=== PATIENT | male | born 1970 | race Caucasian/White ===

== ENCOUNTER → 2018-01-14 | Outpatient (CLI) | payer OTHER | LOC: LAB 16:16 → LAB SHORT 16:16 | DX: I10 Essential (primary) hypertension (principal) | CPT/HCPCS: 83036 ==

== ENCOUNTER 2020-03-08 04:10 | Inpatient (IN) | payer OTHER ==
[~2020-03-08] VITALS: Ht 177.8 cm; Wt 130.4 kg
[2020-03-08] MEDS ORDERED: Glimepiride2 MG PO (05:37)
[2020-03-08] MEDS ORDERED: METFORMIN HCL500 M3 PO (05:38)
[2020-03-08] MEDS ORDERED: LISINOPRIL-HCT1 EACH PO (05:38)
[2020-03-08] MEDS ORDERED: ROSUVASTATIN CA40 MG PO (05:38)
[2020-03-08 05:42] LABS: BASOPHILS ABSOLUTE AUTO 0.04 K/mm3 (0.00-0.23); BASOPHILS PERCENT AUTO 1 % (0-2); EOSINOPHILS ABSOLUTE AUTO 0.15 K/mm3 (0.00-0.68); EOSINOPHILS PERCENT AUTO 3 % (0-6); Hematocrit 44.5 % (37.0-53.0); Hemoglobin 15.1 g/dL (13.5-17.5); IMMATURE GRAN ABSOLUTE AUTO 0.01 K/mm3 (0.00-0.10); IMMATURE GRAN PERCENT AUTO 0 % (0-1); LYMPHOCYTES ABSOLUTE AUTO 1.71 K/mm3 (0.84-5.20); LYMPHOCYTES PERCENT AUTO 31 % (21-46); MONOCYTES ABSOLUTE AUTO 0.34 K/mm3 (0.16-1.47); MONOCYTES PERCENT AUTO 6 % (4-13); Mean Corpuscular HGB 28.5 pg (26.0-34.0); Mean Corpuscular HGB Conc 33.9 g/dL (31.5-36.5); Mean Corpuscular Volume 84 fL (80-100); Mean Platelet Volume 10.2 fL (9.1-12.4); NEUTROPHILS ABSOLUTE AUTO 3.24 K/mm3 (1.96-9.15); NEUTROPHILS PERCENT AUTO 59 % (41-73); Platelet Count 137 K/mm3 (150-400); RDW Coefficient Variation 12.6 % (11.7-14.2); RDW Standard Deviation 38.1 fL (35.1-46.3); White Blood Cell Count 5.49 K/mm3 (4.00-11.30)
[2020-03-08 05:59] LABS: Troponin I 0.294 ng/mL (0.000-0.040)
[2020-03-08 06:00] LABS: Alanine Aminotransfer (ALT/SGP 63 U/L (12-78); Albumin, Blood 3.9 g/dL (3.4-5.0); Albumin/Globulin Ratio 1.2 (0.8-1.8); Alk Phos 73 U/L (50-136); Anion Gap 5 mmol/L (6-16); Aspartate Aminotrans (AST/SGOT 47 U/L (12-37); Bilirubin, Total 0.8 mg/dL (0.1-1.0); Blood Urea Nitrogen 16 mg/dL (8-24); Bun/Creatinine Ratio 18.2 (12.0-20.0); CO2, Blood 29 mmol/L (21-32); Calcium, Blood 8.6 mg/dL (8.5-10.1); Chloride, Blood 106 mmol/L (98-108); Creatinine, Blood 0.88 mg/dL (0.60-1.20); Globulin, Blood 3.3 g/dL (2.2-4.0); Glomerular Filtration Rate >60 (60-); Glucose, Blood 214 mg/dL (70-99); Potassium, Blood 3.6 mmol/L (3.5-5.5); Sodium, Blood 140 mmol/L (136-145); Total Protein, Blood 7.2 g/dL (6.4-8.2)
[2020-03-08 07:56] LABS: International Normalized Ratio 1.03
[2020-03-08] MEDS ORDERED: FENO48 PO (08:26)
--- NOTE | 2020-03-08 11:34 | NUR ---
HEPARIN DC'D AT THIS TIME PER DR. STONER.
--- NOTE | 2020-03-08 12:18 | NUR ---
Echocardiogram completed.
--- NOTE | 2020-03-08 14:05 | NUR ---
RETURNED FROM SWEATBAND SEPARATOR AT THIS TIME, TR BAND TO RIGHT RADIAL. RADIAL PULSE PALPABLE, CAP REFILL <3, MOVES ALL FINGERS WITHOUT DIFFICULTY OR PAIN.
--- NOTE | 2020-03-08 17:47 | NUR ---
4ML TOTAL REMOVED FROM TR BAND AT THIS TIME, NO BLEEDING, RADIAL PULSE PALPABLE, DENIES PAIN OR NUMBESS TO FINGERS.
--- NOTE | 2020-03-08 18:37 | NUR ---
SHIFT SUMMARY; NEW ER ADMIT TODAY, DENIES CHEST PAIN OR SOB DURING SHIFT. BOTTLING SUPERVISOR TODAY WITH RIGHT RADIAL SITE. TR BAND IN PLACE WITH ARM BAND, AIR 100% DEFLATED AT THIS TIME, NO BLEEDING. HEPARIN INFUSING AT 13UNITS/KG PER ORDERS. SPOUSE AT BEDSIDE, WILL CONTINUE TO MONITOR UNTIL SHIFT CHANGE.
[2020-03-08] MEDS ORDERED: ASPI81CH PO (20:32)
--- NOTE | 2020-03-08 21:28 | NUR ---
PT AMBULATES, SBA WITH BINDERY LIBRARY TECHNICAL ASSISTANT TO ICU 9 @ 1856, PT ALERT AND ORIENTED TO SELF, LOCATION, EVENT, AND FOLLOWING DIRECTIONS. MONITOR SHOWS SINUS RHYTHM, HR 80'S, SBP 130'S-140'S. PT DENIES SOB AT REST, STS BECOMES SOB WITH EXERTION WHICH IS NOT NORMAL FOR HIM, DENIES CP. HEPARIN INFUSING (SEE FLOWSHEET). TR BAND IN PLACE TO R RADIAL, PER BINDERY LIBRARY TECHNICAL ASSISTANT BAND IS COMPLETELY DEFLATED AND READY TO BE REMOVED. PT REPORTS MILD CONSTIPATION R/T HOME MEDICATION, NO BM x2 DAYS, DENIES ANY ISSUES. TR BAND REMOVED, SITE CLEANED AND OPSITE PLACED, 2ND PERIPHERAL LINE STARTED, AND PTS HOME CPAP SET UP AT BEDSIDE. UPDATED PTS HOME MEDICATION LIST. EDUCATED PT ON FALL RISK IN HOSPITAL, IMPORTANCE OF CALLING FOR ASSISTANCE R/T HEPARIN AND INCREASED BLEEDING RISK, AND USE OF INSULIN VS HOME MEDS (METFORMIN) IN THE HOSPITAL, PT ACKNOWLEDGES UNDERSTANDING. CALL LIGHT WITHIN REACH, PT DENIES ANY NEEDS AT THIS TIME.
--- NOTE | 2020-03-09 01:08 | NUR ---
MIDSHIFT ASSESSMENT PT RESTING IN BED, HOME CPAP PLACED ON PT INDEPENDENTLY, PT DENIES SOB OR CP WHILE AT REST. VSS. CALL LIGHT WITHIN REACH.
[2020-03-09 03:42] LABS: BASOPHILS ABSOLUTE AUTO 0.02 K/mm3 (0.00-0.23); BASOPHILS PERCENT AUTO 0 % (0-2); EOSINOPHILS ABSOLUTE AUTO 0.18 K/mm3 (0.00-0.68); EOSINOPHILS PERCENT AUTO 3 % (0-6); Hemoglobin 14.2 g/dL (13.5-17.5); IMMATURE GRAN ABSOLUTE AUTO 0.02 K/mm3 (0.00-0.10); IMMATURE GRAN PERCENT AUTO 0 % (0-1); LYMPHOCYTES ABSOLUTE AUTO 1.94 K/mm3 (0.84-5.20); LYMPHOCYTES PERCENT AUTO 37 % (21-46); MONOCYTES ABSOLUTE AUTO 0.29 K/mm3 (0.16-1.47); MONOCYTES PERCENT AUTO 6 % (4-13); Mean Corpuscular HGB 27.9 pg (26.0-34.0); Mean Corpuscular Volume 85 fL (80-100); Mean Platelet Volume 10.4 fL (9.1-12.4); NEUTROPHILS ABSOLUTE AUTO 2.83 K/mm3 (1.96-9.15); NEUTROPHILS PERCENT AUTO 54 % (41-73); Platelet Count 126 K/mm3 (150-400); RDW Coefficient Variation 12.7 % (11.7-14.2); RDW Standard Deviation 38.5 fL (35.1-46.3); Red Blood Cell Count 5.09 M/mm3 (4.30-5.90); White Blood Cell Count 5.28 K/mm3 (4.00-11.30)
[2020-03-09 04:02] LABS: Anion Gap 6 mmol/L (6-16); Blood Urea Nitrogen 14 mg/dL (8-24); Bun/Creatinine Ratio 17.1 (12.0-20.0); CHOL/HDL RATIO 3.9; CO2, Blood 26 mmol/L (21-32); Calcium, Blood 8.6 mg/dL (8.5-10.1); Chloride, Blood 108 mmol/L (98-108); Cholesterol 109 mg/dL (50-200); Creatinine, Blood 0.82 mg/dL (0.60-1.20); Glomerular Filtration Rate >60 (60-); Glucose, Blood 190 mg/dL (70-99); HDL Cholesterol 28 mg/dL (>39); LDL/HDL RATIO 1.2; Low Density Lipoprotein Chol 35 mg/dL (0-110); Potassium, Blood 4.1 mmol/L (3.5-5.5); Sodium, Blood 140 mmol/L (136-145); Triglycerides 232 mg/dL (30-160); Very Low Density Lipoprot Chol 46 mg/dL (6-32)
--- NOTE | 2020-03-09 06:37 | NUR ---
SHIFT SUMMARY NO ACUTE CHANGES THIS SHIFT, PT SLEPT WELL T/O NIGHT, REMAINS AROUSABLE TO NURSING CARE. PT PLACES HOME CPAP ON OWN. VSS. HEPARIN GTT INCREASED PER PHARMACY MANAGEMENT, HEPARIN BOLUS x2 THIS SHIFT. PT TOLERATING PO FLUIDS, VOIDING INDEPENDENTLY WITH SBA ASSISTANCE WITH AMBULATION. DENIES CP, DENIES SOB AT REST. CALL LIGHT WITHIN REACH, PT USING APPROPRIATELY. EKG COMPLETED THIS AM, SEE PTS CHART.
--- NOTE | 2020-03-09 07:47 | NUR ---
ASSESSMENT- PT AWAKE, ALERT, COOPERATIVE. DENIES ANY SOB AT REST, DENIES CP. LUNGS CLEAR, RESPIRATIONS UNLABORED. NSR. BP STABLE. PIV WITH HEPARIN GTT AT 17 UNITS/KG/HR. NO N/V. RIGHT RADIAL ARM BOARD IN PLACE, REVIEWED PRECAUTIONS, STATES UNDERSTANDING, SITE DI.
--- NOTE | 2020-03-09 08:25 | NUR ---
DR. HOPPER HERE-UPDATED. PT SITTING UP IN BED EATING WITHOUT COMPLAINTS. VSS.
--- NOTE | 2020-03-09 10:52 | NUR ---
PT UP IN ROOM WITHOUT PROBLEMS. DR. RENEE HERE-PLANS FOR ORAL ANTICOAGULANT, FOLLOW UP FOR COAGS IN OFFICE.
--- NOTE | 2020-03-09 16:39 | NUR ---
DR. HOPPER HERE-DISCUSSED PLAN WITH PT. XARELTO GIVEN, WILL D/C HEPARIN GTT 30 MINUTES AFTER PER ORDERS. NSR. LUNGS CLEAR, NO SOB AT REST.
--- NOTE | 2020-03-09 17:20 | NUR ---
PT EATING DINNER WITHOUT COMPLAINTS. INFORMATION GIVEN REGARDING XARELTO. REPORT TO [facility]. PT READIED FOR TRANSFER.
--- NOTE | 2020-03-09 18:04 | NUR ---
Assumed Care Called for report @ 1700, received call back from [facility]-ICU @ 1715. Patient arrived to unit @ 1755 via w/c with PIGMENT PRESSER. Denies SOB with exertion at this time. Did c/o having to take one deep breath a couple of times earlier this shift. Currently in the shower. No TR band in place upon arrival. Arm immobilizer and transparent tape in R radial access site, c/d/i. Home CPAP at bedside. Denies pain, nausea, vomiting. States appetite is good. No other concerns. Patient received Xarelto in ICU. Will continue to monitor.
--- NOTE | 2020-03-10 04:13 | NUR ---
SHIFT SUMMARY ASSUMED CARE OF PT AT 1900. PT IS A/OX4, DENIES N/T IN EXTREMITES. HEART SOUNDS REGULAR, TELE SHOWS SINUS @ 88, DENIES CP. LUNG SOUNDS ARE DIMINISHED, DENIES SOB. PT WORE HIS CPAP T/O THE NIGHT. NO ACUTE EVENTS DURING THE NIHGT. PT SLEPT T/O THE NIGHT. CALL LIGHT IN REACH, BED IN LOWEST POSTION, WILL CONTINUE TO MONITOR UNTIL DAYSHIFT NURSE ARRIVES.
[2020-03-10] MEDS ORDERED: XARELTO15 MG PO (11:12)
[2020-03-10] MEDS ORDERED: XARELTO20 MG PO (11:16)
--- NOTE | 2020-03-10 11:46 | NUR ---
Discharge Summary A/Ox4, discharged to home. Reviewed d/c paperwork with patient, copy provided. Referrals made, meds faxed to [facility], f/u appointments scheduled. IV removed, WNL. No questions with discharge papers. Escorted by LOGISTICS PROJECT MANAGER via w/c, personal belongings bagged by patient including his CPAP and sent home. Transportation home via personal vehicle. Patient has been instructed to not miss any Xarelto doses and to keep pressure dressings from IV removal in place for at least 20 minutes or more if needed to stop bleeding.
== END 2020-03-10 11:47 | disposition home or self-care (01) | DRG 176 ==
LOC: ER 04:10 → ICUW 07:19 → PCU 07:19 → ICUW 18:55 → MEDS 03-09 17:47
PROVIDERS: Emergency Medicine; ADMIT Hospitalist
PROC: 4A023N7 Measurement of Cardiac Sampling and Pressure, Left Heart, Percutaneous Approach (ICD-10-PCS; principal; 2020-03-08)
PROC: B2111ZZ Fluoroscopy of Multiple Coronary Arteries using Low Osmolar Contrast (ICD-10-PCS; 2020-03-08)
DX: I26.99 Other pulmonary embolism without acute cor pulmonale (principal); Z68.41 Body mass index [BMI] 40.0-44.9, adult; I27.29 Other secondary pulmonary hypertension; I50.810 Right heart failure, unspecified; I25.10 Atherosclerotic heart disease of native coronary artery without angina pectoris; D69.6 Thrombocytopenia, unspecified; E66.01 Morbid (severe) obesity due to excess calories; I10 Essential (primary) hypertension; E11.9 Type 2 diabetes mellitus without complications; E78.5 Hyperlipidemia, unspecified; E78.00 Pure hypercholesterolemia, unspecified; Z82.49 Family history of ischemic heart disease and other diseases of the circulatory system; Z79.899 Other long term (current) drug therapy; Z79.84 Long term (current) use of oral hypoglycemic drugs
CPT/HCPCS: 36415; 71046; 71260; 80048; 80053; 80061; 82947; 83036; 83690; 84484; 85025; 85610; 85730; 93005; 93010; 93306; 93458; 93970; 99152; 99153; 99285-25; A9270-GY; C1769; C1894; J1644; J2250; J3010; J7030; Q9967

== ENCOUNTER 2020-03-28 09:14 | Emergency (ER) | payer OTHER ==
[~2020-03-28] VITALS: Ht 177.8 cm; Wt 127.9 kg
[~2020-03-28 09:14] MED LIST: ASPI81CH PO; FENO48 PO; Glimepiride2 MG PO; LISINOPRIL-HCT1 EACH PO; METFORMIN HCL500 M3 PO; ROSUVASTATIN CA40 MG PO; XARELTO15 MG PO; XARELTO20 MG PO
== END 2020-03-28 10:52 | disposition home or self-care (01) ==
LOC: ER 09:14
DX: R04.0 Epistaxis (principal); Z86.711 Personal history of pulmonary embolism; Z79.84 Long term (current) use of oral hypoglycemic drugs; Z79.899 Other long term (current) drug therapy
CPT/HCPCS: 99283

== ENCOUNTER 2021-05-23 09:04 | Emergency (ER) | payer OTHER ==
[~2021-05-23] VITALS: Ht 177.8 cm; Wt 130.1 kg
[2021-05-23 09:47] LABS: BASOPHILS ABSOLUTE AUTO 0.02 K/mm3 (0.00-0.23); BASOPHILS PERCENT AUTO 0 % (0-2); EOSINOPHILS ABSOLUTE AUTO 0.09 K/mm3 (0.00-0.68); EOSINOPHILS PERCENT AUTO 2 % (0-6); Hemoglobin 16.2 g/dL (13.5-17.5); IMMATURE GRAN ABSOLUTE AUTO 0.01 K/mm3 (0.00-0.10); IMMATURE GRAN PERCENT AUTO 0 % (0-1); LYMPHOCYTES ABSOLUTE AUTO 1.34 K/mm3 (0.84-5.20); LYMPHOCYTES PERCENT AUTO 27 % (21-46); MONOCYTES ABSOLUTE AUTO 0.28 K/mm3 (0.16-1.47); MONOCYTES PERCENT AUTO 6 % (4-13); Mean Corpuscular HGB 28.5 pg (26.0-34.0); Mean Corpuscular HGB Conc 34.5 g/dL (31.5-36.5); Mean Corpuscular Volume 83 fL (80-100); Mean Platelet Volume 10.7 fL (9.1-12.4); NEUTROPHILS PERCENT AUTO 65 % (41-73); Platelet Count 132 K/mm3 (150-400); RDW Coefficient Variation 12.4 % (11.7-14.2); RDW Standard Deviation 37.2 fL (35.1-46.3); Red Blood Cell Count 5.68 M/mm3 (4.30-5.90); White Blood Cell Count 4.94 K/mm3 (4.00-11.30)
[2021-05-23 10:05] LABS: Alanine Aminotransfer (ALT/SGP 50 U/L (12-78); Albumin/Globulin Ratio 1.2 (0.8-1.8); Alk Phos 82 U/L (50-136); Anion Gap 5 mmol/L (6-16); Aspartate Aminotrans (AST/SGOT 27 U/L (12-37); Bilirubin, Total 0.7 mg/dL (0.1-1.0); Blood Urea Nitrogen 10 mg/dL (8-24); Bun/Creatinine Ratio 11.9 (12.0-20.0); CO2, Blood 29 mmol/L (21-32); Calcium, Blood 8.9 mg/dL (8.5-10.1); Chloride, Blood 101 mmol/L (98-108); Creatinine, Blood 0.84 mg/dL (0.60-1.20); Globulin, Blood 3.2 g/dL (2.2-4.0); Glomerular Filtration Rate >60 (60-); Glucose, Blood 340 mg/dL (70-99); Potassium, Blood 4.3 mmol/L (3.5-5.5); Sodium, Blood 135 mmol/L (136-145); Total Protein, Blood 7.2 g/dL (6.4-8.2); Troponin I <0.015 ng/mL (0.000-0.040)
[2021-05-23 10:13] LABS: Base Excess Venous 3.5 mmol/L; Bicarbonate Venous 25.8 mmol/L (24.0-30.0); PCO2 Venous 51.2 mmHg (38-42); PO2 Venous 41.4 mmHg (38-42); pH Blood Venous 7.36 (7.34-7.37)
[2021-05-23 10:54] LABS: SARS-Cov-2 (COVID-19) PCR, MMC NEGATIVE (NEGATIVE)
== END 2021-05-23 12:23 | disposition home or self-care (01) ==
LOC: ER 09:04
PROVIDERS: Student in an Organized Health Care Education/Training Program
DX: R07.9 Chest pain, unspecified (principal); R06.00 Dyspnea, unspecified; E11.65 Type 2 diabetes mellitus with hyperglycemia; D69.6 Thrombocytopenia, unspecified; D64.9 Anemia, unspecified; I10 Essential (primary) hypertension; E78.5 Hyperlipidemia, unspecified; Z20.822 Contact with and (suspected) exposure to COVID-19; Z86.718 Personal history of other venous thrombosis and embolism; Z79.899 Other long term (current) drug therapy; Z79.84 Long term (current) use of oral hypoglycemic drugs; Z79.01 Long term (current) use of anticoagulants; Z86.711 Personal history of pulmonary embolism
CPT/HCPCS: 36415; 71045; 71260; 80053; 82803; 83880; 84484; 85025; 93005; 93010; 99285-25; Q9967; U0004

== ENCOUNTER 2022-08-09 12:18 | Day surgery (SDC) | payer OTHER ==
[~2022-08-09] VITALS: Ht 177.8 cm; Wt 126.6 kg
[2022-08-09] MEDS ORDERED: ASPI81CH (12:45)
== END 2022-08-09 15:40 | disposition home or self-care (01) ==
LOC: ORSCSDS 12:18
PROVIDERS: Internal Medicine Gastroenterology
PROC: 0DBK8ZX Excision of Ascending Colon, Via Natural or Artificial Opening Endoscopic, Diagnostic (ICD-10-PCS; principal; 2022-08-09 13:45)
DX: Z12.11 Encounter for screening for malignant neoplasm of colon (principal); D12.2 Benign neoplasm of ascending colon; K57.30 Diverticulosis of large intestine without perforation or abscess without bleeding; E11.9 Type 2 diabetes mellitus without complications; G47.33 Obstructive sleep apnea (adult) (pediatric); E66.01 Morbid (severe) obesity due to excess calories; Z68.41 Body mass index [BMI] 40.0-44.9, adult
CPT/HCPCS: 82947; 88305; J2250; J2704; J7120

== ENCOUNTER 2023-08-18 05:22 | Emergency (ER) | payer OTHER ==
[~2023-08-18] VITALS: Ht 182.9 cm; Wt 104.3 kg
[~2023-08-18 05:22] MED LIST changes: +ASPI81CH
[2023-08-18 06:31] VITALS: BP 159/100
[2023-08-18] MEDS ORDERED: METPRE4DP PO (06:43)
[2023-08-18] MEDS ORDERED: IBUP800 PO (06:43)
== END 2023-08-18 06:58 | disposition home or self-care (01) ==
LOC: ER 05:22
DX: M54.50 Low back pain, unspecified (principal); E11.9 Type 2 diabetes mellitus without complications; I10 Essential (primary) hypertension; E78.5 Hyperlipidemia, unspecified; Z79.84 Long term (current) use of oral hypoglycemic drugs; Z79.82 Long term (current) use of aspirin; Z79.899 Other long term (current) drug therapy
CPT/HCPCS: 96374; 96375; 99283-25; J1100; J1885

== ENCOUNTER 2024-01-17 06:51 | Emergency (ER) | payer OTHER ==
[~2024-01-17] VITALS: Ht 177.8 cm; Wt 127.0 kg
[~2024-01-17 06:51] MED LIST changes: +IBUP800 PO; +METPRE4DP PO
[2024-01-17 07:30] VITALS: BP 146/91
[2024-01-17] MEDS ORDERED: VICTOZA 2-0.6 MG/0.1 SC (07:31)
[2024-01-17] MEDS ORDERED: Ketorolac Tromethamine 30mg Vial IV ONE (07:45)
[2024-01-17] MEDS ORDERED: Ondansetron HCl 2 MG / ML 2ML Vial IV ONE (07:50)
[2024-01-17] MEDS ORDERED: NS 1,000 ML IV SCH (07:50)
[2024-01-17 07:58] LABS: Source, Urine Clean Catch
[2024-01-17 08:05] LABS: BASOPHILS ABSOLUTE AUTO 0.02 K/mm3 (0.00-0.23); BASOPHILS PERCENT AUTO 0 % (0-2); EOSINOPHILS ABSOLUTE AUTO 0.06 K/mm3 (0.00-0.68); EOSINOPHILS PERCENT AUTO 1 % (0-6); Hematocrit 46.1 % (37.0-53.0); Hemoglobin 15.6 g/dL (13.5-17.5); IMMATURE GRAN ABSOLUTE AUTO 0.02 K/mm3 (0.00-0.10); IMMATURE GRAN PERCENT AUTO 0 % (0-1); LYMPHOCYTES ABSOLUTE AUTO 1.11 K/mm3 (0.84-5.20); LYMPHOCYTES PERCENT AUTO 18 % (21-46); MONOCYTES ABSOLUTE AUTO 0.28 K/mm3 (0.16-1.47); MONOCYTES PERCENT AUTO 5 % (4-13); Mean Corpuscular HGB 27.8 pg (26.0-34.0); Mean Corpuscular HGB Conc 33.8 g/dL (31.5-36.5); Mean Corpuscular Volume 82 fL (80-100); Mean Platelet Volume 10.3 fL (9.1-12.4); NEUTROPHILS ABSOLUTE AUTO 4.68 K/mm3 (1.96-9.15); NEUTROPHILS PERCENT AUTO 76 % (41-73); Platelet Count 152 K/mm3 (150-400); RDW Coefficient Variation 12.7 % (11.7-14.2); RDW Standard Deviation 37.3 fL (35.1-46.3); Red Blood Cell Count 5.61 M/mm3 (4.30-5.90); White Blood Cell Count 6.17 K/mm3 (4.00-11.30)
[2024-01-17 08:10] LABS: Appearance, Urine Cloudy (Clear); Blood, Urine 1+ (Neg); Color, Urine Yellow (P-Yellow); Glucose Qualitative, Urine 3+ (Neg); Ketones, Urine 1+ (Neg); Leukocyte Esterase, Urine Neg (Neg); Nitrite, Urine Neg (Neg); Protein, Urine 2+ (Neg); Urobilinogen, Urine 1+ (Normal)
[2024-01-17 08:15] LABS: Albumin, Blood 4.1 g/dL (3.4-5.0); Albumin/Globulin Ratio 1.2 (0.8-1.8); Bilirubin, Direct 0.2 mg/dL (0.0-0.3); Bilirubin, Indirect 0.6 mg/dL (0.1-0.7); Bilirubin, Total 0.8 mg/dL (0.1-1.0); Bun/Creatinine Ratio 12.4 (12.0-20.0); Calcium, Blood 9.8 mg/dL (8.5-10.1); Creatinine, Blood 0.88 mg/dL (0.60-1.20); Globulin, Blood 3.3 g/dL (2.2-4.0); Total Protein, Blood 7.4 g/dL (6.4-8.2)
[2024-01-17 08:16] LABS: Bilirubin, Urine 1+ (Neg)
[2024-01-17 08:18] LABS: Amorphous Heavy (0-Heavy); Mucus Heavy (0-Heavy)
[2024-01-17 08:26] LABS: Bacteria Mod /hpf; Red Blood Cells, Urine 0-2 /hpf (0-2); Squamous Epithelial Cells Rare /hpf (Few); White Blood Cells, Urine 0-2 /hpf (0-5)
[2024-01-17] MEDS ORDERED: ONDA4ODT MM (09:11)
[2024-01-17] MEDS ORDERED: TAMS.4ER PO (09:11)
[2024-01-17] MEDS ORDERED: OXYC5 PO (09:11)
== END 2024-01-17 09:33 | disposition home or self-care (01) ==
LOC: ER 06:51
PROVIDERS: Student in an Organized Health Care Education/Training Program
DX: N13.2 Hydronephrosis with renal and ureteral calculous obstruction (principal); Z79.899 Other long term (current) drug therapy; Z79.82 Long term (current) use of aspirin; Z79.84 Long term (current) use of oral hypoglycemic drugs; E11.9 Type 2 diabetes mellitus without complications; I10 Essential (primary) hypertension; E78.5 Hyperlipidemia, unspecified
CPT/HCPCS: 74177; 80048; 80076; 81001; 83690; 85025; 87086; 96361; 96374-59; 96375; 99284-25; J1885; J2405; J7030; Q9967